=== PATIENT | male | born 1975 | race Caucasian/White ===

== ENCOUNTER 2021-10-07 20:50 | Inpatient (IN) | payer OTHER, BC ==
[~2021-10-07] VITALS: Ht 180.3 cm; Wt 84.8 kg
[2021-10-07 21:17] LABS: HEMOGLOBIN 16.1 gm/dl (14.0-17.5); RED BLOOD COUNT 5.85 M/UL (4.20-5.50); WHITE BLOOD COUNT 9.3 K/UL (4.5-11.0)
[2021-10-07 22:24] LABS: BUN/CREATININE RATIO 12 (0-10)
[2021-10-09] MEDS ORDERED: PERCOCET 5/325 T1 EA PO (09:18)
[2021-10-09] MEDS ORDERED: CYCLOBENZAPRINE10 MG PO (09:18)
== END 2021-10-10 17:30 | disposition home or self-care (01) | DRG 200 ==
LOC: ER1 20:50 → EDBD 22:49 → PROG CARE 22:49 → CDU 22:49 → PROG CARE 22:49 → MED SURG 4 10-09 12:11 → PROG CARE 10-09 12:11 → MED SURG 4 10-09 18:08
PROVIDERS: Preventive Medicine Occupational Medicine; ADMIT Surgery
PROC: 5A0945A Assistance with Respiratory Ventilation, 24-96 Consecutive Hours, High Flow/Velocity Cannula (ICD-10-PCS; principal; 2021-10-09)
DX: S27.0XXA Traumatic pneumothorax, initial encounter (principal); S22.43XA Multiple fractures of ribs, bilateral, initial encounter for closed fracture; S22.069A Unspecified fracture of T7-T8 vertebra, initial encounter for closed fracture; S22.079A Unspecified fracture of T9-T10 vertebra, initial encounter for closed fracture; Z20.822 Contact with and (suspected) exposure to COVID-19; V89.2XXA Person injured in unspecified motor-vehicle accident, traffic, initial encounter
CPT/HCPCS: 70450; 70486; 71045; 71046; 71260; 72125; 72128; 72131; 72170; 80053; 80307; 81001; 82550; 82553; 83605; 83690; 84484; 85025; 85610; 85652; 85730; 86140; 86850; 86900; 86901; 87086; 93005; 94640; 94664; 94760; 96374; 96376; 99285; G0378; G0480; J3411; J3475; J7030; Q9967; U0002